=== PATIENT | male | born 1960 | race Caucasian/White ===

== ENCOUNTER 2017-02-17 14:36 | Emergency (ER) | payer OTHER ==
[~2017-02-17] VITALS: Ht 170.2 cm; Wt 110.0 kg
[~2017-02-17 14:36] MED LIST: ALPR2TAB PO; AMLO-218 PO; ASPI81TA PO; HYDROCODONE; MORPHINE; same meds
[2017-02-17 14:49] VITALS: Ht 170.2 cm; Wt 110.0 kg
[2017-02-17] MEDS ORDERED: ONDANSETRON 4 MG INJ IV STA (15:52)
[2017-02-17] MEDS ORDERED: SOD CHLORIDE 0.9% 500 ML IV STA (15:52)
--- NOTE | 2017-02-17 16:32 | RADRPT ---
PROCEDURE: XR Chest. CLINICAL INDICATION: Chest pain. TECHNIQUE: Single frontal view. COMPARISON: 12/11/2012. FINDINGS: The lungs are clear. The heart size is normal. There is no pleural effusion. There is no pneumothorax. IMPRESSION: 1. Normal chest radiograph. 2. No change from 12/11/2012. RPTAT: QQ .Kentrell James MD, MD Date Time Electronically viewed and signed by .Kentrell James MD, MD on 02/17/2017 16:32 .R/
[2017-02-17] MEDS ORDERED: ALBUTEROL 0.083% (NEB) 2.5 MG/3 ML AMP NEB STA (16:57)
[2017-02-17] MEDS ORDERED: BUPR75TA9 PO (17:14)
[2017-02-17] MEDS ORDERED: ATOR80TA75 PO (17:15)
[2017-02-17] MEDS ORDERED: ATEN50TA PO (17:15)
[2017-02-17] MEDS ORDERED: SENN-53 PO (17:15)
[2017-02-17] MEDS ORDERED: OXYC-209 PO (17:16)
[2017-02-17] MEDS ORDERED: MORP15TA92 PO (17:16)
--- NOTE | 2017-02-17 17:17 | RADRPT ---
PROCEDURE: CT Abdomen and Pelvis without contrast. CLINICAL INDICATION: Left-sided abdominal pain TECHNIQUE: CT scan of the abdomen and pelvis without contrast was performed on a multidetector hig h-resolution CT scanner. The patient was scanned without intravenous contrast. Coronal and sagittal reformatted images were obtained from the axial source images. Images were reviewed on a high-resol [employer] PACS workstation. The total exam CTDI equals 23.43 mGy and the total exam DLP equals 1563.88 m Gy-cm. One or more of the following dose reduction techniques were used: Automated exposure control. Adjustment of the mA and/or kV according to patient size. Use of iterative reconstruction technique. COMPARISON: None FINDINGS: CT abdomen: The lung bases are clear. The heart size is normal, without pericardial thickening or effusion. There is fatty infiltration of the liver. The spleen is normal in size and homogeneous in density. The stomach is partially collapsed, but is grossly unremarkable. The pancreas as visualized is norm al. The gallbladder is unremarkable. There is no evidence for biliary dilatation. The adrenal glan ds are symmetric and normal. The kidneys are symmetrically unremarkable as well. No renal calculus or obstructive uropathy or mass lesion is seen. The aorta is of normal caliber. Scattered aortic vascular calcifications are present. There is no re troperitoneal lymphadenopathy. The silverio hepatis region is clear. The bowel and mesentery, as visu alized, are equally unremarkable. CT pelvis: There are a few mildly enlarged pelvic lymph nodes measures up to 1.4 cm in the left external iliac chain on image 3 - 142 The small bowel loops situated within the pelvis are unremarkable. Fat-contai aliya small bilateral inguinal hernias are present. The pelvic organs are normal. The pelvic sidewal ls and inguinal regions are clear. The sigmoid colon and rectum are unremarkable. No mass or free fluid is seen. No acute inflammation is seen. The surrounding osseous structures are remarkable f or degenerative spondylosis of the spine. No osteolytic or osteoblastic lesion is detected. IMPRESSION: 1. Mildly enlarged pelvic lymph nodes measures up to 1.4 cm in the left external iliac chain. No retroperitoneal/intraperitoneal lymphadenopathy. 2. No mass or acute inflammatory changes. 3. Small fat containing inguinal hernias. 4. Fatty liver. RPTAT: BB .Mathieu Chery MD, MD Date Time Electronically viewed and signed by .Mathieu Chery MD, MD on 02/17/2017 17:16 .O/
--- NOTE | 2017-02-17 19:43 | ERD ---
ER Documentation Chief Complaint Chief Complaint BIB [facility] FOR EVAL OF TOTAL BODY PAIN AND PARRA. HPI 57-year-old male with a history of chronic neck and back pain, hypertension, and high cholesterol, presenting to the ER with multiple complaints. He states he has had intermittent chest pain for several hours in the left side of his chest that is nonradiating. He also complains of left headache and facial pain that has been going on for months that happens occasionally. He has also complains of nausea with some mild left-sided abdominal pain. He does state that recently he had what he thinks was a stomach virus with diarrhea. He denies any fevers, chills, vomiting, constipation or diarrhea currently. ROS All systems reviewed and are negative except as per history of present illness. Medications Home Meds Reported Medications Morphine Sulfate* (Ms Contin*) 15 Mg Tablet.sa, 15 MG PO Q12, TAB 02/17/17 Oxycodone HCl/Acetaminophen (Percocet 10-325 mg Tablet) 1 Each Tablet, 1 EACH PO NEEDED, TAB 02/17/17 Atorvastatin* (Atorvastatin*) 80 Mg Tablet, 80 MG PO QHS, #30 TAB 02/17/17 Atenolol* (Atenolol*) 50 Mg Tablet, 50 MG PO DAILY, #30 TAB 02/17/17 Sennosides* (Senna Lax*) 8.6 Mg Tablet, 2 TAB PO DAILY, TAB 02/17/17 Bupropion Hcl (Wellbutrin) 75 Mg Tablet, 75 MG PO QAM, TAB 02/17/17 Alprazolam* (Xanax*) 2 Mg Tablet, 1 MG PO DAILY TAKE 1 OR 2 TIMES A DAY 05/27/11 Aspirin (Adult Low Strength) 81 Mg Tablet.dr, 81 MG PO DAILY 05/27/11 Discontinued Reported Medications [same meds] No Conflict Check 01/05/12 [Morphine] No Conflict Check 05/27/11 [Hydrocodone] No Conflict Check 05/27/11 Amlodipine Besylate* (Norvasc*) 10 Mg Tablet, 10 MG PO DAILY 05/27/11 Allergies Allergies: Coded Allergies: No Known Allergy (Unverified , 02/17/17) PMhx/Soc History of Surgery: Yes (L knee surgery) Anesthesia Reaction: No Hx Neurological Disorder: Yes (STROKE 2012 ) Hx Respiratory Disorders: No Hx Cardiac Disorders: Yes (HYPERTENSION ) Hx Psychiatric Problems: Yes (ANXIETY, PTSD) Hx Miscellaneous Medical Probl: Yes (HTN, ARTHRITIS, L KNEE SURGERY, DEGENERATIVE DISC DISEASE) Hx Alcohol Use: No Hx Substance Use: No Hx Tobacco Use: No Smoking Status: Never smoker FmHx Family History: No diabetes Physical Exam Vitals Vital Signs Date Time Temp Pulse Resp B/P Pulse Ox O2 Delivery O2 Flow Rate FiO2 02/17/17 17:10 75 18 96 21 02/17/17 14:49 98.6 72 18 162/92 99 Physical Exam Const: Obese, no apparent distress, nontoxic Head: Atraumatic Eyes: Normal Conjunctiva, PERRLA, EOMI ENT: Normal External Ears, Nose and Mouth. Neck: Full range of motion..~ No meningismus. Resp: End expiratory wheezing, no rales or rhonchi. Breath sounds equal bilaterally Cardio: Regular rate and rhythm, no murmurs Abd: Soft, mild left lower quadrant tenderness with no rebound or guarding, non distended. Normal bowel sounds Skin: No petechiae or rashes Back: No midline or flank tenderness Ext: No cyanosis, bilateral lower extremity nonpitting edema, no calf tenderness Neur: Awake and alert, oriented 3, cranial nerves intact, strength and sensations intact grossly in all 4 extremities. Gait not tested as the patient uses a wheelchair at baseline Psych: Normal Mood and Affect Result Diagram: 02/17/17 1552 02/17/17 1552 Results 24 hrs Laboratory Tests Test 02/17/17 15:52 02/17/17 16:00 White Blood Count 6.710^3/ul Red Blood Count 5.7910^6/ul Hemoglobin 17.4g/dl Hematocrit 52.7% Mean Corpuscular Volume 91.0fl Mean Corpuscular Hemoglobin 30.1pg Mean Corpuscular Hemoglobin Concent 33.0g/dl Red Cell Distribution Width 13.1% Platelet Count 85880^3/UL Mean Platelet Volume 11.2fl Neutrophils % 61.2% Lymphocytes % 24.1% Monocytes % 8.8% Eosinophils % 4.3% Basophils % 1.0% Nucleated Red Blood Cells % 0.0/100WBC Neutrophils # 4.110^3/ul Lymphocytes # 1.610^3/ul Monocytes # 0.610^3/ul Eosinophils # 0.310^3/ul Basophils # 0.110^3/ul Nucleated Red Blood Cells # 0.010^3/ul D-Dimer < 220.00ng/ml D-Dimer Comment Sodium Level 144mmol/L Potassium Level 4.3mmol/L Chloride Level 104mmol/L Carbon Dioxide Level 33mmol/L Anion Gap 11 Blood Urea Nitrogen 13mg/dl Creatinine 0.88mg/dl Glucose Level 93mg/dl Calcium Level 9.3mg/dl Total Bilirubin 0.6mg/dl Direct Bilirubin 0.00mg/dl Indirect Bilirubin 0.6mg/dl Aspartate Amino Transf (AST/SGOT) 23IU/L Alanine Aminotransferase (ALT/SGPT) 39IU/L Alkaline Phosphatase 54IU/L Troponin I < 0.012ng/ml Total Protein 7.5g/dl Albumin 3.9g/dl Globulin 3.60g/dl Albumin/Globulin Ratio 1.08 Lipase 104U/L Urine Color YELLOW Urine Clarity CLEAR Urine pH 6.0 Urine Specific [place] 1.012 Urine Ketones NEGATIVEmg/dL Urine Nitrite NEGATIVEmg/dL Urine Bilirubin NEGATIVEmg/dL Urine Urobilinogen NEGATIVEmg/dL Urine Leukocyte Esterase NEGATIVELeu/ul Urine Hemoglobin NEGATIVEmg/dL Urine Glucose NEGATIVEmg/dL Urine Total Protein NEGATIVEmg/dl Current Medications Medications (Trade) Dose Ordered Sig/Funmi Route PRN Reason Start Time Stop Time Status Last Admin Dose Admin Sodium Chloride (NS) 500 ml @ 500 mls/hr Q1H STAT IV 02/17/17 15:52 02/17/17 16:51 DC 02/17/17 16:11 Ondansetron HCl (Zofran Inj) 4 mg ONCE STAT IV 02/17/17 15:52 02/17/17 15:53 DC 02/17/17 16:11 Albuterol (Proventil 0.083% (Neb)) 5 mg ONCE STAT NEB 02/17/17 16:57 02/17/17 16:58 DC 02/17/17 17:08 Procedures/MDM EMERGENT LABS AND DIAGNOSTIC STUDIES: Lab Results above were reviewed and interpreted by me. CBC unremarkable BMP shows elevated CO2 troponin within normal limits D-dimer within normal limits Urinalysis normal 12-lead EKG was interpreted by Ramo Navarrete MD: Normal Sinus Rhythm with ventricular rate of 70 beats per minute Normal axis Normal intervals No acute ST or T wave changes suggestive of acute ischemia or STEMI. Radiology Results as interpreted by Radiology below were reviewed by Brennan Navarrete MD: Chest x-ray shows no acute abnormalities CT abdomen and pelvis: IMPRESSION: 1. Mildly enlarged pelvic lymph nodes measures up to 1.4 cm in the left external iliac chain. No retroperitoneal/intraperitoneal lymphadenopathy. 2. No mass or acute inflammatory changes. 3. Small fat containing inguinal hernias. 4. Fatty liver. RPTAT: BB .Mathieu Chery MD, Date Time Electronically viewed and signed by .Mathieu Chery MD, MD on 02/17/2017 17:16 Initial Nursing notes reviewed. Previous Medical Records requested via the Electronic Health Record. EMERGENCY DEPARTMENT COURSE / MEDICAL DECISION MAKING: Patient is presenting with complaints of chronic left-sided headaches, chest pain, abdominal discomfort with stable vitals. Labs did not show any significant abnormalities. I did consider acute coronary syndrome, pulmonary embolism, aortic dissection, pneumonia among other etiologies with regard to his chest pain. I have a low suspicion for acute stroke, intracranial hemorrhage, meningitis, encephalitis, or carotid dissection. It seems his headaches are chronic and most consistent with trigeminal neuralgia. Upon reevaluation, the patient states that he feels much better. His heart score was 3. Initial troponin was normal as well as the EKG. Since he has had the pain for several hours, repeat troponin is not necessary at this time. Risk of adverse cardiac event is less than 1%. Shared decision making was done with the patient. Decision was made to discharge the patient home with continued outpatient follow-up. Return precautions were discussed. Patient's blood pressure was elevated (>120/80) but appears stable without evidence of hypertensive emergency or urgency. The patient was counseled about the risks of hypertension and urged to pursue outpatient monitoring and therapy within a week with their primary care physician. Departure Diagnosis: Primary Impression: Chest pain Chest pain type: unspecified Qualified Code: R07.9 - Chest pain, unspecified type Additional Impressions: Generalized weakness Chronic left-sided headaches Condition: Stable Patient Instructions: Chest Pain, Uncertain Cause, Trigeminal Neuralgia Additional Instructions: Keep your appointment with your primary care doctor on February 25. Return to the ER sooner if any of your symptoms worsen. INOCENCIO NAVARRETE MD Feb 17, 2017 19:43
== END 2017-02-17 20:34 | disposition home or self-care (01) ==
LOC: E/R 14:36
DX: R07.9 Chest pain, unspecified (principal); R53.1 Weakness; R51 Headache; I10 Essential (primary) hypertension; Z79.82 Long term (current) use of aspirin
CPT/HCPCS: 36415; 71010; 74176; 80053; 81003; 83690; 84484; 85025; 85378; 93005; 94664; 96374; J2405; J7040; Z7502; Z7610